=== PATIENT | female | born 1945 | race Caucasian/White ===

== ENCOUNTER 2023-05-14 05:59 | Day surgery (SDC) | payer MEDICARE ==
[2023-05-13 14:58] VITALS: BMI 24.3
[2023-05-14] MEDS ORDERED: EPINEPHrine 1 MG/ML VIAL ONE (06:36)
[2023-05-14] MEDS ORDERED: Bupivacaine PF 0.5% 30 ML VIAL ONE (06:36)
[2023-05-14] MEDS ORDERED: Scopolamine 1 mg/72 hour Patch ONE (07:12)
[2023-05-14] MEDS ORDERED: fentaNYL 50 mcg/mL 1 mL Vial ONE (07:47)
[2023-05-14] MEDS ORDERED: Rocuronium Bromide 10 MG/ML (10ML VIAL) ONE (07:47)
[2023-05-14] MEDS ORDERED: PROPOFOL 20 ML ONE ×2 (07:47→08:32)
[2023-05-14] MEDS ORDERED: Dexamethasone 4 mg/ml Vial ONE (07:47)
[2023-05-14] MEDS ORDERED: Lidocaine 2% PF 5 ML VIAL ONE (07:47)
[2023-05-14] MEDS ORDERED: Ondansetron PF 4 MG/2 ML Vial ONE (07:47)
[2023-05-14] MEDS ORDERED: CEFAZOLIN 2 GM VIAL ONE (07:48)
[2023-05-14] MEDS ORDERED: SUGAMMADEX SODIUM 200 MG/2 ML VIAL ONE (08:26)
[2023-05-14] MEDS ORDERED: traMADol HCl 50 MG TAB PO PRN (09:08)
[2023-05-14] MEDS ORDERED: traMADol HCl 50 MG TAB ONE (09:39)
[2023-05-14] MEDS ORDERED: oxyCODONE 5 MG TAB ONE (10:08)
== END 2023-05-14 10:55 | disposition home or self-care (01) ==
LOC: CSHSDC 05:59
PROVIDERS: ATTEND Surgery
PROC: 0FT44ZZ Resection of Gallbladder, Percutaneous Endoscopic Approach (ICD-10-PCS; principal; 2023-05-14)
DX: K80.10 Calculus of gallbladder with chronic cholecystitis without obstruction (principal); I10 Essential (primary) hypertension; K21.9 Gastro-esophageal reflux disease without esophagitis; E03.9 Hypothyroidism, unspecified; K44.9 Diaphragmatic hernia without obstruction or gangrene; N60.11 Diffuse cystic mastopathy of right breast; Z79.890 Hormone replacement therapy; Z79.899 Other long term (current) drug therapy; Z88.5 Allergy status to narcotic agent; Z91.048 Other nonmedicinal substance allergy status; Z91.041 Radiographic dye allergy status; Z90.710 Acquired absence of both cervix and uterus
CPT/HCPCS: 47562; J0171; J3010; 88304; C1889; J0665; J1100; J2001; J2405; J2704